=== PATIENT | male | born 1945 | race Caucasian/White ===

== ENCOUNTER → 2016-09-28 | Outpatient (REF) | payer MEDICARE, OTHER ==
[2016-09-28 11:07] LABS: MEAN CORPUSCULAR HGB CONC 33.7 g/dl (32.0-36.5); WHITE BLOOD COUNT 8.4 K/mm3 (4.0-10.0)
[2016-09-28 11:32] LABS: ALBUMIN 4.1 GM/DL (3.2-5.2); ALBUMIN/GLOBULIN RATIO 1.58 (1.00-1.93); ALKALINE PHOSPHATASE 72 U/L (45-117); ALT/SGPT 36 U/L (12-78); ANION GAP 8 MEQ/L (8-16); AST/SGOT 17 U/L (15-37); BILIRUBIN,TOTAL 0.5 MG/DL (0.2-1.0); BLOOD UREA NITROGEN 19 MG/DL (7-18); CALCIUM LEVEL 9.3 MG/DL (8.8-10.2); CARBON DIOXIDE LEVEL 29 MEQ/L (21-32); CHLORIDE LEVEL 102 MEQ/L (98-107); CHOLESTEROL LEVEL 147 MG/DL (<200); GLOMERULAR FILTRATION RATE > 60.0 (>49); GLUCOSE, FASTING 112 MG/DL (80-110); POTASSIUM SERUM 4.5 MEQ/L (3.5-5.1); SODIUM LEVEL 139 MEQ/L (136-145); TOTAL PROTEIN 6.7 GM/DL (6.4-8.2); TRIGLYCERIDES LEVEL 67 MG/DL (<150)
== END ==
LOC: M SFHCCLAY 06:57
PROVIDERS: ATTEND Family Medicine
DX: I10 Essential (primary) hypertension (principal); G47.33 Obstructive sleep apnea (adult) (pediatric); R73.01 Impaired fasting glucose; Z12.5 Encounter for screening for malignant neoplasm of prostate
CPT/HCPCS: 80053; 80061; 83036; 85027; G0103

== ENCOUNTER → 2016-11-07 | Outpatient (REF) | payer MEDICARE, OTHER | LOC: M LABDRAWC 11:27 | PROVIDERS: ATTEND Ophthalmology | DX: H53.9 Unspecified visual disturbance (principal) ==

== ENCOUNTER → 2017-01-08 | Outpatient (REF) | payer MEDICARE, OTHER ==
[~2017-01-08] MED LIST: LOSA100T5 PO; NEXI40CA PO
[2017-01-08 18:08] LABS: BLOOD UREA NITROGEN 26 MG/DL (7-18); GLOMERULAR FILTRATION RATE > 60.0 (>49)
== END ==
LOC: M LABDRAWC 17:04
PROVIDERS: ATTEND Psychiatry & Neurology Neurology
DX: N18.2 Chronic kidney disease, stage 2 (mild) (principal)

== ENCOUNTER → 2017-03-20 | Outpatient (REF) | payer MEDICARE, OTHER ==
[2017-03-20 19:28] LABS: ALBUMIN 4.1 GM/DL (3.2-5.2); ALBUMIN/GLOBULIN RATIO 1.37 (1.00-1.93); ALKALINE PHOSPHATASE 71 U/L (45-117); ALT/SGPT 36 U/L (12-78); ANION GAP 8 MEQ/L (8-16); AST/SGOT 19 U/L (15-37); BILIRUBIN,TOTAL 0.5 MG/DL (0.2-1.0); BLOOD UREA NITROGEN 24 MG/DL (7-18); CALCIUM LEVEL 9.3 MG/DL (8.8-10.2); CARBON DIOXIDE LEVEL 28 MEQ/L (21-32); CHLORIDE LEVEL 105 MEQ/L (98-107); CREATININE FOR GFR 0.87 MG/DL (0.70-1.30); GLOMERULAR FILTRATION RATE > 60.0 (>49); GLUCOSE, FASTING 96 MG/DL (80-110); POTASSIUM SERUM 4.1 MEQ/L (3.5-5.1); SODIUM LEVEL 141 MEQ/L (136-145); TOTAL PROTEIN 7.1 GM/DL (6.4-8.2)
== END ==
LOC: M SFHCCLAY 09:53
PROVIDERS: ATTEND Family Medicine
DX: Z01.818 Encounter for other preprocedural examination (principal); H26.9 Unspecified cataract; I10 Essential (primary) hypertension
CPT/HCPCS: 36415; 80053; G0463

== ENCOUNTER 2017-03-25 07:54 | Day surgery (SDC) | payer MEDICARE, OTHER ==
[~2017-03-25] VITALS: Ht 170.2 cm; Wt 91.6 kg
[~2017-03-25 07:54] MED LIST changes: +ACETAMINOPHEN 325 MG TAB PO PRN; +BSS with VANC/TOB/EPI for EYE CASES IR ONE; +CYCLOPENTOLATE 2% OPHTH SOLN 2ML BTL OS ONE; +LIDOCAINE 3.5 % 1ML OPHTH TOPICAL GEL OU ONE; +OFLOXACIN 0.3 % (OCUFLOX) OPTH SOL 5ML OS ONE; +PHENYLEPHRINE 2.5% OPHTH SOL 2ML OS ONE; +TROPICAMIDE 1% OPHTH SOLN 2ML OS ONE
[2017-03-25] MEDS ORDERED: LR 1,000 ML IV ONE (08:15)
[2017-03-25] MEDS ORDERED: fentaNYL 100 MCG/2 ML INJECTION (J3010) As Ordered ONE (08:55)
[2017-03-25] MEDS ORDERED: MIDAZOLAM INJ 2 MG/2 ML VIAL (J2250) As Ordered ONE (08:55)
[2017-03-25] MEDS ORDERED: POVIDONE-IODINE 5% OPHTH PREP SOL 30ML As Ordered ONE (09:06)
[2017-03-25] MEDS ORDERED: MOXIFLOXACIN IN BSS 0.25MG/0.25ML INTRACAMERAL INJ (OR EYE ONLY)(J2280) As Ordered ONE (09:06)
[2017-03-25] MEDS ORDERED: TRIAMCINOLONE PRES FR 40 MG/ML 1ML(TRIESENCE)(OR EYE ONLY)(J3300 PER 1MG) As Ordered ONE (09:06)
[2017-03-25] MEDS ORDERED: HEALON DUET (HEALON 10MG/ML 0.55ML & HEALON ENDOCOAT 30MG/ML 0.85ML) As Ordered ONE (09:06)
[2017-03-25] MEDS ORDERED: LIDOCAINE 1% SDV 5 ML VIAL As Ordered ONE (09:06)
[2017-03-25] MEDS ORDERED: AcetaZOLAMIDE 500 MG ER CAP PO ONE (09:45)
[2017-03-25] MEDS ORDERED: TRIMETHOBENZAMIDE 300 MG CAP PO PRN (09:45)
[2017-03-25] MEDS ORDERED: ONDANSETRON 4MG/2ML VIAL (J2405) IV PRN (09:45)
[2017-03-25] MEDS ORDERED: LR 1,000 ML IV SCH (09:45)
[2017-03-25 09:50] VITALS: BP 159/88
--- NOTE | 2017-03-25 16:23 | RO ---
DATE OF PROCEDURE: 03/25/2017 PREPROCEDURE DIAGNOSIS: Cataract left eye, miosis left eye. POSTPROCEDURE DIAGNOSIS: Cataract of left eye, miosis left eye. PROCEDURE: Phacoemulsification and intraocular lens implantation and placement of the Malyugin ring 7 mm for miosis. SURGEON: Cristopher Mondragon MD SENIOR SAS DEVELOPER: None. ANESTHESIA: COMPLICATIONS: None. INDICATIONS: Decreased vision interfering with daily activities. DESCRIPTION OF PROCEDURE: The patient was brought to the operating room and laid in supine position, and the eye was prepped and draped in a sterile fashion for ophthalmic surgery and a lid speculum was placed. Side[place] incision was then made and EndoCoat was injected into the anterior chamber. Temporal clear corneal incision was then made with a 2.5 mm keratome followed by capsulorrhexis and hydrodissection. Prior to that, a Malyugin ring was placed to dilate the pupil. After the phacoemulsification was performed within the capsular bag, cortical material was aspirated using irrigation and aspiration cannula. Healon was then placed in the capsular bag and intraocular lens Hoya 19.5 diopters inserted. Excess viscoelastic was then aspirated, wound hydrated, intracameral moxifloxacin was given and sub-Tenon injection of Kenalog was given inferiorly. At the end of the case, lid speculum removed, the patient returned to the recovery room in stable condition.
== END 2017-03-25 09:56 | disposition home or self-care (01) ==
LOC: M SDC 07:54
PROVIDERS: ATTEND Ophthalmology
DX: H26.9 Unspecified cataract (principal); H57.03 Miosis; I10 Essential (primary) hypertension; K21.9 Gastro-esophageal reflux disease without esophagitis; F32.9 Major depressive disorder, single episode, unspecified; G47.33 Obstructive sleep apnea (adult) (pediatric); M72.2 Plantar fascial fibromatosis; R73.01 Impaired fasting glucose; E66.09 Other obesity due to excess calories; R06.83 Snoring; Z79.899 Other long term (current) drug therapy; Z79.82 Long term (current) use of aspirin; Z87.891 Personal history of nicotine dependence
CPT/HCPCS: 66982; J2250; J2280; J3010; J3300; V2632

== ENCOUNTER → 2018-02-10 | Outpatient (REF) | payer MEDICARE, OTHER ==
[2018-02-10 12:43] LABS: BLOOD UREA NITROGEN 24 MG/DL (7-18)
[2018-02-10 12:43] LABS: CREATININE FOR GFR 1.17 MG/DL (0.70-1.30); GLOMERULAR FILTRATION RATE > 60.0 (>42)
== END ==
LOC: M LABDRAWC 11:45
DX: Z13.89 Encounter for screening for other disorder (principal); D43.2 Neoplasm of uncertain behavior of brain, unspecified
CPT/HCPCS: 82565

== ENCOUNTER → 2018-04-02 | Outpatient (REF) | payer MEDICARE, OTHER ==
[2018-04-02 11:51] LABS: HEMATOCRIT 43.8 % (42.0-52.0); HEMOGLOBIN 14.7 g/dl (13.5-17.5); MEAN CORPUSCULAR HEMOGLOBIN 29.5 pg (27.0-33.0); MEAN CORPUSCULAR HGB CONC 33.6 g/dl (32.0-36.5); MEAN CORPUSCULAR VOLUME 87.8 fl (80.0-96.0); PLATELET COUNT, AUTOMATED 227 10^3/uL (150-450); RED BLOOD COUNT 4.99 10^6/uL (4.30-6.10); RED CELL DISTRIBUTION WIDTH 12.2 % (11.5-14.5); WHITE BLOOD COUNT 8.1 10^3/uL (4.0-10.0)
[2018-04-02 11:58] LABS: ALBUMIN/GLOBULIN RATIO 1.38 (1.00-1.93); ALKALINE PHOSPHATASE 74 U/L (45-117); ALT/SGPT 35 U/L (12-78); ANION GAP 8 MEQ/L (8-16); AST/SGOT 17 U/L (7-37); BILIRUBIN,TOTAL 0.5 MG/DL (0.2-1.0); BLOOD UREA NITROGEN 28 MG/DL (7-18); CALCIUM LEVEL 8.7 MG/DL (8.8-10.2); CARBON DIOXIDE LEVEL 28 MEQ/L (21-32); CHLORIDE LEVEL 106 MEQ/L (98-107); CHOLESTEROL LEVEL 154 MG/DL (<200); CHOLESTEROL RISK RATIO 3.347 (<5); CREATININE FOR GFR 1.13 MG/DL (0.70-1.30); GLOMERULAR FILTRATION RATE > 60.0 (>42); GLUCOSE, FASTING 95 MG/DL (70-100); HDL CHOLESTEROL 46 MG/DL (>40); LDL CHOLESTEROL 93 MG/DL (<100); NON-HDL-C 108 MG/DL; POTASSIUM SERUM 4.3 MEQ/L (3.5-5.1); PSA SCREENING 1.65 NG/ML (< 4.0); SODIUM LEVEL 142 MEQ/L (136-145); TOTAL PROTEIN 6.9 GM/DL (6.4-8.2); TRIGLYCERIDES LEVEL 77 MG/DL (<150)
[2018-04-02 13:24] LABS: ESTIMATED AVERAGE GLUCOSE 126 MG/DL (60-110)
== END ==
LOC: M SFHCCLAY 07:36
DX: G47.33 Obstructive sleep apnea (adult) (pediatric) (principal); I10 Essential (primary) hypertension; R73.01 Impaired fasting glucose; Z12.5 Encounter for screening for malignant neoplasm of prostate
CPT/HCPCS: 80053

== ENCOUNTER 2018-05-19 06:01 | Day surgery (SDC) | payer MEDICARE, OTHER ==
[2018-05-19] MEDS: LIDOCAINE 3.5 % 1ML OPHTH TOPICAL GEL OU (06:50)
[2018-05-19] MEDS ORDERED: SODIUM BICARBONATE 8.4% INJ 50MEQ 50 ML VIAL As Ordered (06:56)
[2018-05-19] MEDS ORDERED: MIDAZOLAM INJ 2 MG/2 ML VIAL (J2250) As Ordered (07:19)
[2018-05-19] MEDS ORDERED: LIDOCAINE 2% INJ 100 MG/5 ML SDV (FOR ANES.) As Ordered (07:19)
[2018-05-19] MEDS ORDERED: PROPOFOL 200 MG/20 ML VIAL As Ordered (07:19)
[2018-05-19] MEDS ORDERED: fentaNYL 100 MCG/2 ML INJECTION (J3010) As Ordered (07:19)
[2018-05-19] MEDS: POVIDONE-IODINE 5% OPHTH PREP SOL 30ML As Ordered (07:35)
[2018-05-19] MEDS: LIDOCAINE 2% W/EPIN INJ 20ML **PRES FREE As Ordered (07:41)
[2018-05-19] MEDS: TETRACAINE 0.5% OPHTH SOLN 4ML As Ordered (07:41)
[2018-05-19] MEDS: TOBRADEX OPHTH OINT 3.5 GM As Ordered (07:52)
== END 2018-05-19 08:45 | disposition home or self-care (01) ==
LOC: M SDC 06:01
DX: H02.834 Dermatochalasis of left upper eyelid (principal); H02.831 Dermatochalasis of right upper eyelid; I10 Essential (primary) hypertension; K21.9 Gastro-esophageal reflux disease without esophagitis; R06.83 Snoring; G47.33 Obstructive sleep apnea (adult) (pediatric); Z79.899 Other long term (current) drug therapy; Z79.82 Long term (current) use of aspirin; Z98.41 Cataract extraction status, right eye; Z98.42 Cataract extraction status, left eye; Z96.1 Presence of intraocular lens
CPT/HCPCS: 15823

== ENCOUNTER 2018-10-08 07:51 | Day surgery (SDC) | payer MEDICARE, OTHER ==
[~2018-10-08] VITALS: Ht 172.7 cm; Wt 102.2 kg
[~2018-10-08 07:51] MED LIST changes: -ACETAMINOPHEN 325 MG TAB PO PRN; +ASPI81TA85 PO; -BSS with VANC/TOB/EPI for EYE CASES IR ONE; -CYCLOPENTOLATE 2% OPHTH SOLN 2ML BTL OS ONE; +EDARBYCLOR PO; -LIDOCAINE 3.5 % 1ML OPHTH TOPICAL GEL OU ONE; +NS 1,000 ML IV ONE; -OFLOXACIN 0.3 % (OCUFLOX) OPTH SOL 5ML OS ONE; +PANT40TA3 PO; -PHENYLEPHRINE 2.5% OPHTH SOL 2ML OS ONE; -TROPICAMIDE 1% OPHTH SOLN 2ML OS ONE
--- NOTE | 2018-10-08 09:39 | ROOR ---
Patient Name: Kenny Richard Procedure Date: 10/08/2018 9:19 AM Date of : 1945 Age: 72 Room: [facility] Gender: Male Note Status: Finalized Procedure: Total Colonoscopy to Cecum Indications: High risk colon cancer surveillance: Personal history of colonic polyps, Last colonoscopy: 2014 Providers: Arden Santiago MD Referring MD: Grant Grace MD Requesting Provider: Medicines: Monitored Anesthesia Care Complications: No immediate complications. Procedure: Pre-Anesthesia Assessment: - The heart rate, respiratory rate, oxygen saturations, blood pressure, adequacy of pulmonary ventilation, and response to care were monitored throughout the procedure. The Colonoscope was introduced through the anus and advanced to the cecum, identified by appendiceal orifice and ileocecal valve. The colonoscopy was performed without difficulty. The patient tolerated the procedure well. The quality of the bowel preparation was excellent. Findings: The perianal and digital rectal examinations were normal. Non-bleeding internal hemorrhoids were found during retroflexion. The hemorrhoids were small and Grade I (internal hemorrhoids that do not prolapse). No other significant abnormalities were identified in a careful examination of the remainder of the colon. The exam was otherwise without abnormality on direct and retroflexion views. Impression: - Non-bleeding internal hemorrhoids. - The examination was otherwise normal on direct and retroflexion views. - No specimens collected. - The exam was otherwise normal to the cecum. Recommendation: - Patient has a contact number available for emergencies. The signs and symptoms of potential delayed complications were discussed with the patient. Return to normal activities tomorrow. Written discharge instructions were provided to the patient. - High fiber diet. - Discharge patient to home. - Continue present medications. - Repeat colonoscopy in 5 years for surveillance. - Return to referring physician. - The findings and recommendations were discussed with the patient's family. Arden Santiago MD Arden Santiago MD 10/08/2018 9:39:42 AM Electronically signed by Arden Santiago MD Number of Addenda: 0 Note Initiated On: 10/08/2018 9:19 AM Estimated Blood Loss: Estimated blood loss: none.
[2018-10-08] MEDS ORDERED: PROPOFOL 500 MG/50 ML VIAL As Ordered ONE (09:54)
[2018-10-08] MEDS ORDERED: LIDOCAINE 2% INJ 100 MG/5 ML SDV (FOR ANES.) As Ordered ONE (09:54)
[2018-10-08 10:05] VITALS: BP 151/79
== END 2018-10-08 10:14 | disposition home or self-care (01) ==
LOC: M OPP 07:51
PROVIDERS: ATTEND Internal Medicine Gastroenterology
DX: K64.0 First degree hemorrhoids (principal); Z86.010 Personal history of colon polyps

== ENCOUNTER → 2019-02-18 | Outpatient (REF) | payer MEDICARE, OTHER ==
[~2019-02-18] MED LIST changes: -NS 1,000 ML IV ONE
[2019-02-18 11:26] LABS: CREATININE FOR GFR 1.34 MG/DL (0.70-1.30); GLOMERULAR FILTRATION RATE 55.9 (>42)
== END ==
LOC: M LABDRAWC 11:09
PROVIDERS: ATTEND Neurological Surgery
DX: Z13.89 Encounter for screening for other disorder (principal); D43.2 Neoplasm of uncertain behavior of brain, unspecified

== ENCOUNTER → 2019-10-06 | Outpatient (REF) | payer MEDICARE, OTHER ==
[2019-10-06 12:14] LABS: HEMATOCRIT 45.4 % (42.0-52.0); HEMOGLOBIN 15.2 g/dl (13.5-17.5); MEAN CORPUSCULAR HEMOGLOBIN 30.5 pg (27.0-33.0); MEAN CORPUSCULAR HGB CONC 33.5 g/dl (32.0-36.5); MEAN CORPUSCULAR VOLUME 91.2 fl (80.0-96.0); PLATELET COUNT, AUTOMATED 223 10^3/uL (150-450); RED BLOOD COUNT 4.98 10^6/uL (4.30-6.10); WHITE BLOOD COUNT 9.1 10^3/uL (4.0-10.0)
[2019-10-06 12:36] LABS: ALBUMIN 4.3 GM/DL (3.2-5.2); BILIRUBIN,TOTAL 0.7 MG/DL (0.2-1.0); CALCIUM LEVEL 9.4 MG/DL (8.8-10.2); CHOLESTEROL RISK RATIO 3.434 (<5); CREATININE FOR GFR 1.44 MG/DL (0.70-1.30); GLOMERULAR FILTRATION RATE 51.5 (>42); POTASSIUM SERUM 4.5 MEQ/L (3.5-5.1); THYROID STIMULATING HORMONE 1.19 uIU/ML (0.358-3.740); TOTAL PROTEIN 7.2 GM/DL (6.4-8.2)
== END ==
LOC: M SFHCCLAY 07:46
PROVIDERS: ATTEND Family Medicine
DX: I10 Essential (primary) hypertension (principal); G47.33 Obstructive sleep apnea (adult) (pediatric); R73.01 Impaired fasting glucose; Z12.5 Encounter for screening for malignant neoplasm of prostate
CPT/HCPCS: 80053; 80061; 84443; 85027; G0103

== ENCOUNTER → 2020-02-09 | Outpatient (REF) | payer MEDICARE, OTHER ==
[~2020-02-09] MED LIST changes: -ASPI81TA85 PO; +ASPI81TA86 PO; +PANT40TA29 PO; -PANT40TA3 PO
[2020-02-09 20:32] LABS: BLOOD UREA NITROGEN 25 MG/DL (7-18); CREATININE FOR GFR 1.23 MG/DL (0.70-1.30); GLOMERULAR FILTRATION RATE > 60.0 (>42)
== END ==
LOC: M LABDRAWC 07:10
PROVIDERS: ATTEND Neurological Surgery
DX: Z13.89 Encounter for screening for other disorder (principal)

== ENCOUNTER → 2020-05-24 | Outpatient (CLI) | payer SELFPAY | LOC: M LABSMTC 11:14 | PROVIDERS: ATTEND Pediatrics | DX: Z11.59 Encounter for screening for other viral diseases (principal) ==

== ENCOUNTER → 2020-10-10 | Outpatient (REF) | payer MEDICARE, OTHER ==
[2020-10-10 12:24] LABS: ALBUMIN 4.1 GM/DL (3.2-5.2); ALT/SGPT 36 U/L (12-78); BILIRUBIN,TOTAL 0.5 MG/DL (0.2-1.0); BLOOD UREA NITROGEN 28 MG/DL (7-18); CALCIUM LEVEL 8.9 MG/DL (8.8-10.2); CARBON DIOXIDE LEVEL 29 MEQ/L (21-32); CHLORIDE LEVEL 104 MEQ/L (98-107); CHOLESTEROL LEVEL 158 MG/DL (<200); CHOLESTEROL RISK RATIO 3.224 (<5); CREATININE FOR GFR 1.12 MG/DL (0.70-1.30); GLOMERULAR FILTRATION RATE > 60.0 (>42); GLUCOSE, FASTING 119 MG/DL (70-100); HDL CHOLESTEROL 49 MG/DL (>40); LDL CHOLESTEROL 86 MG/DL (<100); NON-HDL-C 109 MG/DL; POTASSIUM SERUM 4.4 MEQ/L (3.5-5.1); SODIUM LEVEL 139 MEQ/L (136-145); TOTAL PROTEIN 7.1 GM/DL (6.4-8.2); TRIGLYCERIDES LEVEL 113 MG/DL (<150)
[2020-10-10 12:44] LABS: HEMOGLOBIN A1c 5.7 %
== END ==
LOC: M SFHCCLAY 07:05
PROVIDERS: ATTEND Family Medicine
DX: G47.33 Obstructive sleep apnea (adult) (pediatric) (principal); I10 Essential (primary) hypertension; R73.01 Impaired fasting glucose; Z12.5 Encounter for screening for malignant neoplasm of prostate
CPT/HCPCS: 80053; 80061; 83036; 84443; G0103

== ENCOUNTER → 2020-10-20 | Outpatient (CLI) | payer MEDICARE, OTHER ==
--- NOTE | 2020-10-20 15:22 | REP ---
INDICATION: STRAIN. COMPARISON: None TECHNIQUE: Four views FINDINGS: There is no acute fracture, dislocation, subluxation, or joint effusion. IMPRESSION: Mild degenerative changes <Electronically signed by Nbail Del Rio > 10/20/20 [id number]
--- NOTE | 2020-10-20 15:23 | REP ---
INDICATION: STRAIN. COMPARISON: None TECHNIQUE: Four views each wrist FINDINGS: There is no evidence of an acute fracture or destructive osseous lesion. IMPRESSION: Within normal limits bilateral <Electronically signed by Nabil Del Rio > 10/20/20 [id number]
== END ==
LOC: M SOG 11:12
PROVIDERS: ATTEND Orthopaedic Surgery Sports Medicine
DX: S46.211A Strain of muscle, fascia and tendon of other parts of biceps, right arm, initial encounter (principal); G56.03 Carpal tunnel syndrome, bilateral upper limbs; X58.XXXA Exposure to other specified factors, initial encounter; Y92.9 Unspecified place or not applicable; Y99.9 Unspecified external cause status

== ENCOUNTER → 2020-11-03 | Outpatient (CLI) | payer MEDICARE, OTHER ==
--- NOTE | 2020-11-03 17:25 | REP ---
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 COMPARISON: None TECHNIQUE: 3T multiplanar MRI imaging of the right elbow was obtained using various sequences. FINDINGS: There is mild T2 hyper signal seen deep to the common extensor tendon which is intact. The radial collateral ligament is intact. The common flexor tendon is intact. The medial and lateral ulnar collateral ligaments are intact. There is no joint effusion. The examination is limited by motion artifact. All flexor and extensor tendons not affected by motion artifact are intact and of normal appearing low signal throughout. The biceps tendon is poorly evaluated secondary to the motion artifact. There is no evidence of edema around the biceps tubercle of the radius. The chondral surfaces are thinned and slightly irregular particularly affecting the capitellum. IMPRESSION: 1. There is detail limiting motion artifact as described above. 2. There is evidence of edema along the under surface of the common extensor tendon. A slight undersurface tear cannot be ruled out. 3. Chondromalacia as described above. 4. Other findings and limitations as described above. <Electronically signed by Nabil Del Rio > 11/03/20 [id number]
== END ==
LOC: M RAD 15:20
PROVIDERS: ATTEND Physician Assistant
DX: M94.221 Chondromalacia, right elbow (principal); S46.211A Strain of muscle, fascia and tendon of other parts of biceps, right arm, initial encounter; D43.2 Neoplasm of uncertain behavior of brain, unspecified; X58.XXXA Exposure to other specified factors, initial encounter; Y92.9 Unspecified place or not applicable; Y99.9 Unspecified external cause status

== ENCOUNTER → 2021-02-16 | Outpatient (REF) | payer MEDICARE, OTHER ==
[2021-02-16 11:48] LABS: CREATININE FOR GFR 1.24 MG/DL (0.70-1.30); GLOMERULAR FILTRATION RATE > 60.0 (>42)
== END ==
LOC: M LABDRAWC 10:19
PROVIDERS: ATTEND Physician Assistant
DX: D43.2 Neoplasm of uncertain behavior of brain, unspecified (principal)

== ENCOUNTER → 2021-02-21 | Outpatient (CLI) | payer MEDICARE, OTHER ==
[~2021-02-21] MED LIST changes: +PROHANCE 279.3MG/ML 15ML VIAL As Ordered ONE; +PROHANCE 279.3MG/ML 5ML VIAL As Ordered ONE
--- NOTE | 2021-02-21 14:12 | REPVR ---
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 Contrast material: PROHANCE; Contrast volume: 16 ml; Contrast route: INTRAVENOUS (IV); COMPARISON: MRI-Spine,Cervical without con 09/30/2015 6:59 AM FINDINGS: Brain: I see no evidence of acute hemorrhage or acute territorial infarct. For age there are moderate diffuse involutional changes present with mild T2 and FLAIR hyperintensities suggestive of small vessel disease. The expected vascular flow voids are present centrally. Cerebral ventricles: Best seen on the sagittal T1 weighted images is a 6 x 5 mm nodule in the 4th ventricle in the midline which demonstrates limited posterior enhancement. This is slightly hyperintense on the T2 weighted images and would be consistent with a subependymoma. This is not changed significantly in size relative to the MRI of the cervical spine. Bones/joints: The marrow signal is benign on the T1 weighted images. Paranasal sinuses: Limited ethmoid disease without air-fluid levels. Mastoid air cells: The mastoids are well aerated. Orbital cavity: Bilateral lens replacements. Soft tissues: Unremarkable. IMPRESSION: Stable 4th ventricular mass relative to the MRI of more than 5 years ago. 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 No hydronephrosis. Electronically signed by: Tony Lucero On 02/21/2021 14:12:05 PM
== END ==
LOC: M RAD 12:56
PROVIDERS: ATTEND Physician Assistant
DX: D43.2 Neoplasm of uncertain behavior of brain, unspecified (principal)
CPT/HCPCS: 70553; A9576

== ENCOUNTER → 2021-04-13 | Outpatient (REF) | payer MEDICARE, OTHER ==
[~2021-04-13] MED LIST changes: -PROHANCE 279.3MG/ML 15ML VIAL As Ordered ONE; -PROHANCE 279.3MG/ML 5ML VIAL As Ordered ONE
[2021-04-13 16:38] LABS: APPEARANCE, URINE CLEAR (CLEAR); BACTERIA, URINE AUTO NEGATIVE (NEGATIVE); BILIRUBIN, URINE AUTO NEGATIVE (NEGATIVE); BLOOD, URINE BLOOD NEGATIVE (NEGATIVE); COLOR, URINE STRAW (YELLOW); GLUCOSE, URINE (UA) AUTO NEGATIVE (NEGATIVE); KETONE, URINE AUTO NEGATIVE (NEGATIVE); LEUKOCYTE ESTERASE, URINE AUTO NEGATIVE (NEGATIVE); NITRITE, URINE AUTO NEGATIVE (NEGATIVE); PROTEIN, URINE AUTO NEGATIVE (NEGATIVE); RBC, URINE AUTO 0 /HPF (0-3); SPECIFIC GRAVITY URINE AUTO 1.003 (1.002-1.035); SQUAMOUS EPITHELIAL CELL UR AU 0 /HPF (0-6); UROBILINOGEN, URINE AUTO 0.2 mg/dL (0.0-2.0); WBC, URINE AUTO 0 /HPF (0-3)
== END ==
LOC: M SFHCCLAY 11:00
PROVIDERS: ATTEND Family Medicine
DX: R39.15 Urgency of urination (principal)
CPT/HCPCS: 81001; G0463

== ENCOUNTER → 2021-10-11 | Outpatient (REF) | payer MEDICARE, OTHER ==
[2021-10-11 12:12] LABS: HEMATOCRIT 42.9 % (42.0-52.0); HEMOGLOBIN 14.1 g/dl (13.5-17.5); MEAN CORPUSCULAR HEMOGLOBIN 29.7 pg (27.0-33.0); MEAN CORPUSCULAR HGB CONC 32.9 g/dl (32.0-36.5); MEAN CORPUSCULAR VOLUME 90.5 fl (80.0-96.0); PLATELET COUNT, AUTOMATED 197 10^3/uL (150-450); RED BLOOD COUNT 4.74 10^6/uL (4.30-6.10); WHITE BLOOD COUNT 8.6 10^3/uL (4.0-10.0)
[2021-10-11 12:31] LABS: HEMOGLOBIN A1c 5.9 %
[2021-10-11 12:48] LABS: ALBUMIN 4.1 GM/DL (3.2-5.2); ALT/SGPT 36 U/L (12-78); BILIRUBIN,TOTAL 0.5 MG/DL (0.2-1.0); BLOOD UREA NITROGEN 27 MG/DL (7-18); CALCIUM LEVEL 9.3 MG/DL (8.8-10.2); CARBON DIOXIDE LEVEL 30 MEQ/L (21-32); CHLORIDE LEVEL 106 MEQ/L (98-107); CHOLESTEROL LEVEL 172 MG/DL (<200); CHOLESTEROL RISK RATIO 3.739 (<5); CREATININE FOR GFR 1.21 MG/DL (0.70-1.30); GLOMERULAR FILTRATION RATE > 60.0 (>42); GLUCOSE, FASTING 106 MG/DL (70-100); HDL CHOLESTEROL 46 MG/DL (>40); LDL CHOLESTEROL 100 MG/DL (<100); NON-HDL-C 126 MG/DL; POTASSIUM SERUM 5.2 MEQ/L (3.5-5.1); SODIUM LEVEL 140 MEQ/L (136-145); TOTAL PROTEIN 6.8 GM/DL (6.4-8.2); TRIGLYCERIDES LEVEL 130 MG/DL (<150)
== END ==
LOC: M SFHCCLAY 07:04
PROVIDERS: ATTEND Family Medicine
DX: I10 Essential (primary) hypertension (principal); G47.33 Obstructive sleep apnea (adult) (pediatric); Z12.5 Encounter for screening for malignant neoplasm of prostate; R73.01 Impaired fasting glucose

== ENCOUNTER → 2021-10-12 | Outpatient (REF) | payer MEDICARE, OTHER ==
[2021-10-12 16:11] LABS: APPEARANCE, URINE CLEAR (CLEAR); BACTERIA, URINE AUTO NEGATIVE (NEGATIVE); BILIRUBIN, URINE AUTO NEGATIVE (NEGATIVE); BLOOD, URINE BLOOD NEGATIVE (NEGATIVE); COLOR, URINE YELLOW (YELLOW); GLUCOSE, URINE (UA) AUTO NEGATIVE (NEGATIVE); KETONE, URINE AUTO TRACE mg/dL (NEGATIVE); LEUKOCYTE ESTERASE, URINE AUTO NEGATIVE (NEGATIVE); MUCUS, URINE SMALL (NEGATIVE); NITRITE, URINE AUTO NEGATIVE (NEGATIVE); PROTEIN, URINE AUTO NEGATIVE (NEGATIVE); RBC, URINE AUTO 0 /HPF (0-3); SQUAMOUS EPITHELIAL CELL UR AU 0 /HPF (0-6); UROBILINOGEN, URINE AUTO 0.2 mg/dL (0.0-2.0); WBC, URINE AUTO 0 /HPF (0-3)
== END ==
LOC: M SFHCCLAY 15:43
PROVIDERS: ATTEND Family Medicine
DX: I10 Essential (primary) hypertension (principal); G47.33 Obstructive sleep apnea (adult) (pediatric); R73.01 Impaired fasting glucose

== ENCOUNTER → 2022-04-16 | Outpatient (REF) | payer MEDICARE, OTHER ==
[2022-04-16 12:56] LABS: CALCIUM LEVEL 9.3 MG/DL (8.8-10.2); CREATININE FOR GFR 1.26 MG/DL (0.70-1.30); GLOMERULAR FILTRATION RATE 59.6 (>42); POTASSIUM SERUM 4.4 MEQ/L (3.5-5.1)
== END ==
LOC: M SFHCCLAY 08:17
PROVIDERS: ATTEND Family Medicine
DX: R73.01 Impaired fasting glucose (principal); I10 Essential (primary) hypertension

== ENCOUNTER → 2022-10-10 | Outpatient (REF) | payer MEDICARE, OTHER ==
[2022-10-10 12:39] LABS: ALBUMIN 4.1 G/DL (3.2-5.2); BILIRUBIN,TOTAL 0.5 MG/DL (0.3-1.2); CALCIUM LEVEL 9.1 MG/DL (8.3-10.6); CHOLESTEROL RISK RATIO 3.16 (<5); CREATININE FOR GFR 1.27 MG/DL (0.70-1.30); HDL CHOLESTEROL 48.3 MG/DL (>40); LDL CHOLESTEROL 83.5 MG/DL (<100); NON-HDL-C 104.7 MG/DL; POTASSIUM SERUM 4.3 MMOL/L (3.5-5.1); TOTAL PROTEIN 6.6 G/DL (5.7-8.2)
== END ==
LOC: M SFHCCLAY 07:53
PROVIDERS: ATTEND Family Medicine
DX: I10 Essential (primary) hypertension (principal); G47.33 Obstructive sleep apnea (adult) (pediatric); Z12.5 Encounter for screening for malignant neoplasm of prostate; R73.01 Impaired fasting glucose
CPT/HCPCS: 80053; 80061; 83036; G0103

== ENCOUNTER → 2023-01-31 | Outpatient (REF) | payer MEDICARE, OTHER ==
[2023-01-31 11:53] LABS: BLOOD UREA NITROGEN 25 MG/DL (9-23); CREATININE FOR GFR 1.23 MG/DL (0.70-1.30); GLOMERULAR FILTRATION RATE > 60.0 (>42)
== END ==
LOC: M LABDRAWC 11:03
PROVIDERS: ATTEND Physician Assistant
DX: D43.2 Neoplasm of uncertain behavior of brain, unspecified (principal)

== ENCOUNTER → 2023-04-08 | Outpatient (REF) | payer MEDICARE, OTHER ==
[2023-04-08 19:01] LABS: HEMATOCRIT 42.5 % (42.0-52.0); HEMOGLOBIN 14.3 g/dl (13.5-17.5); MEAN CORPUSCULAR HEMOGLOBIN 30.4 pg (27.0-33.0); MEAN CORPUSCULAR HGB CONC 33.6 g/dl (32.0-36.5); MEAN CORPUSCULAR VOLUME 90.2 fl (80.0-96.0); PLATELET COUNT, AUTOMATED 223 10^3/uL (150-450); RED BLOOD COUNT 4.71 10^6/uL (4.30-6.10); WHITE BLOOD COUNT 9.9 10^3/uL (4.0-10.0)
[2023-04-09 02:40] LABS: HEMOGLOBIN A1c 5.7 % (4.0-6.0)
[2023-04-09 03:15] LABS: ALBUMIN 4.2 G/DL (3.2-5.2); ALKALINE PHOSPHATASE 65 U/L (46-116); ALT/SGPT 23 U/L (7.0-40); AST/SGOT 16 U/L (<34); BILIRUBIN,TOTAL 0.4 MG/DL (0.3-1.2); BLOOD UREA NITROGEN 27 MG/DL (9-23); CALCIUM LEVEL 9.5 MG/DL (8.3-10.6); CARBON DIOXIDE LEVEL 28 MMOL/L (20-31); CHLORIDE LEVEL 102 MMOL/L (98-107); CREATININE FOR GFR 1.22 MG/DL (0.70-1.30); GLOMERULAR FILTRATION RATE > 60.0 (>42); GLUCOSE, FASTING 93 MG/DL (74-106); POTASSIUM SERUM 4.3 MMOL/L (3.5-5.1); SODIUM LEVEL 139 MMOL/L (136-145)
== END ==
LOC: M SFHCCLAY 13:58
PROVIDERS: ATTEND Family Medicine
DX: I10 Essential (primary) hypertension (principal); G47.33 Obstructive sleep apnea (adult) (pediatric); Z12.5 Encounter for screening for malignant neoplasm of prostate; R73.01 Impaired fasting glucose

== ENCOUNTER → 2023-11-05 | Outpatient (REF) | payer MEDICARE, OTHER | LOC: M SFHCCLAY 07:46 | PROVIDERS: ATTEND Family Medicine | DX: I10 Essential (primary) hypertension (principal); G47.33 Obstructive sleep apnea (adult) (pediatric); Z12.5 Encounter for screening for malignant neoplasm of prostate; R73.01 Impaired fasting glucose ==

== ENCOUNTER → 2023-12-09 | Outpatient (REF) | payer MEDICARE, OTHER ==
[~2023-12-09] MED LIST changes: +ECOT81TA5 PO; +TAMS1CAP17 PO
[2023-12-09 13:44] LABS: BLOOD UREA NITROGEN 30 MG/DL (9-23); CALCIUM LEVEL 9.2 MG/DL (8.3-10.6); CARBON DIOXIDE LEVEL 30 MMOL/L (20-31); CHLORIDE LEVEL 103 MMOL/L (98-107); CREATININE FOR GFR 1.23 MG/DL (0.70-1.30); GLOMERULAR FILTRATION RATE > 60.0 (>42); GLUCOSE, FASTING 118 MG/DL (74-106); POTASSIUM SERUM 4.6 MMOL/L (3.5-5.1); SODIUM LEVEL 138 MMOL/L (136-145)
== END ==
LOC: M SFHCCLAY 07:51
PROVIDERS: ATTEND Family Medicine
DX: I10 Essential (primary) hypertension (principal)

== ENCOUNTER 2023-12-23 07:29 | Day surgery (SDC) | payer MEDICARE, OTHER ==
[~2023-12-23] VITALS: Ht 172.7 cm; Wt 98.9 kg
[2023-12-23] MEDS: NS 1,000 ML IV ONE (08:01)
[2023-12-23] MEDS ORDERED: LIDOCAINE 2% 100MG/5ML SDV (FOR ANES.) As Ordered ONE (08:47)
[2023-12-23] MEDS ORDERED: propofoL 200 MG/20 ML VIAL As Ordered ONE (08:47)
[2023-12-23 09:05] VITALS: TEMP 98.1
[2023-12-23 09:34] VITALS: BP 136/78; O2SAT 97
== END 2023-12-23 09:35 | disposition home or self-care (01) ==
LOC: M OPP 07:29
PROVIDERS: ATTEND Internal Medicine Gastroenterology
DX: Z12.11 Encounter for screening for malignant neoplasm of colon (principal); Z86.010 Personal history of colon polyps; D12.2 Benign neoplasm of ascending colon; K64.0 First degree hemorrhoids; K57.30 Diverticulosis of large intestine without perforation or abscess without bleeding; K21.00 Gastro-esophageal reflux disease with esophagitis, without bleeding; R12 Heartburn; G47.30 Sleep apnea, unspecified; Z99.89 Dependence on other enabling machines and devices; I10 Essential (primary) hypertension; Z79.1 Long term (current) use of non-steroidal anti-inflammatories (NSAID); Z79.899 Other long term (current) drug therapy

== ENCOUNTER → 2024-03-09 | Outpatient (REF) | payer MEDICARE, OTHER ==
[2024-03-09 18:47] LABS: BASO # 0.1 10^3/uL (0.0-0.2); BASO % 0.8 % (0.0-1.0); EOS # 0.7 10^3/uL (0.0-0.5); EOS % 6.2 % (0.0-3.0); HEMATOCRIT 44.4 % (42.0-52.0); HEMOGLOBIN 14.9 g/dl (13.5-17.5); LYMPH # 2.3 10^3/uL (1.5-5.0); LYMPH % 21.4 % (24.0-44.0); MEAN CORPUSCULAR HEMOGLOBIN 30.7 pg (27.0-33.0); MEAN CORPUSCULAR HGB CONC 33.6 g/dl (32.0-36.5); MEAN CORPUSCULAR VOLUME 91.5 fl (80.0-96.0); MONO # 0.9 10^3/uL (0.0-0.8); MONO % 8.4 % (2.0-8.0); NEUTROPHILS # 6.6 10^3/uL (1.5-8.5); NEUTROPHILS % 62.5 % (36.0-66.0); PLATELET COUNT, AUTOMATED 229 10^3/uL (150-450); RED BLOOD COUNT 4.85 10^6/uL (4.30-6.10); WHITE BLOOD COUNT 10.6 10^3/uL (4.0-10.0)
[2024-03-09 19:05] LABS: ALBUMIN 4.2 G/DL (3.2-5.2); ALKALINE PHOSPHATASE 93 U/L (46-116); ALT/SGPT 28 U/L (7.0-40); AST/SGOT 13 U/L (<34); BILIRUBIN,TOTAL 0.4 MG/DL (0.3-1.2); BLOOD UREA NITROGEN 24 MG/DL (9-23); CALCIUM LEVEL 9.5 MG/DL (8.3-10.6); CARBON DIOXIDE LEVEL 29 MMOL/L (20-31); CHLORIDE LEVEL 106 MMOL/L (98-107); CREATININE FOR GFR 1.24 MG/DL (0.70-1.30); GLOMERULAR FILTRATION RATE > 60.0 (>42); GLUCOSE, FASTING 143 MG/DL (74-106); POTASSIUM SERUM 4.2 MMOL/L (3.5-5.1); SODIUM LEVEL 143 MMOL/L (136-145); THYROID STIMULATING HORMONE 1.274 uIU/ML (0.55-4.78); TOTAL PROTEIN 6.9 G/DL (5.7-8.2)
== END ==
LOC: M SFHCCLAY 13:28
PROVIDERS: ATTEND Physician Assistant
DX: L29.9 Pruritus, unspecified (principal)

== ENCOUNTER → 2024-05-07 | Outpatient (REF) | payer MEDICARE, OTHER ==
[2024-05-07 12:40] LABS: HEMOGLOBIN A1c 5.8 % (4.0-6.0)
== END ==
LOC: M SFHCCLAY 07:39
PROVIDERS: ATTEND Family Medicine
DX: R73.01 Impaired fasting glucose (principal); Z20.9 Contact with and (suspected) exposure to unspecified communicable disease; S50.862A Insect bite (nonvenomous) of left forearm, initial encounter; W57.XXXA Bitten or stung by nonvenomous insect and other nonvenomous arthropods, initial encounter; Y92.9 Unspecified place or not applicable; Y99.9 Unspecified external cause status; Y93.9 Activity, unspecified

== ENCOUNTER → 2024-05-13 | Outpatient (REF) | payer MEDICARE, OTHER ==
[2024-05-13 17:54] LABS: RHEUMATOID FACTOR QUANT 5.1 IU/ML (<14)
[2024-05-18 13:46] LABS: ANA SCREEN, IFA NEGATIVE (NEGATIVE)
[2024-05-18 22:16] LABS: PTH INTACT 32.6 PG/ML (18.5-88.0)
[2024-05-19 23:02] LABS: TRYPTASE 4.5 mcg/L (<11.0)
== END ==
LOC: M LABDRAWC 10:04
PROVIDERS: ATTEND Allergy & Immunology Allergy
DX: L29.9 Pruritus, unspecified (principal)

== ENCOUNTER → 2024-11-05 | Outpatient (REF) | payer MEDICARE, OTHER ==
[2024-11-05 12:53] LABS: PSA SCREENING 1.65 NG/ML (< 4.00)
[2024-11-05 12:57] LABS: ALBUMIN 4.2 G/DL (3.2-5.2); BILIRUBIN,TOTAL 0.4 MG/DL (0.3-1.2); CALCIUM LEVEL 9.4 MG/DL (8.3-10.6); CHOLESTEROL RISK RATIO 4.63 (<5); CREATININE FOR GFR 1.4 MG/DL (0.70-1.30); GLOMERULAR FILTRATION RATE 52.1 (>42); HDL CHOLESTEROL 38.4 MG/DL (>40); LDL CHOLESTEROL 110.2 MG/DL (<100); NON-HDL-C 139.6 MG/DL; POTASSIUM SERUM 4.3 MMOL/L (3.5-5.1)
[2024-11-05 13:03] LABS: HEMOGLOBIN A1c 5.8 % (4.0-6.0)
== END ==
LOC: M SFHCCLAY 08:49
PROVIDERS: ATTEND Nurse Practitioner Family
DX: Z12.5 Encounter for screening for malignant neoplasm of prostate (principal); Z00.00 Encounter for general adult medical examination without abnormal findings; I10 Essential (primary) hypertension; K21.9 Gastro-esophageal reflux disease without esophagitis; G47.33 Obstructive sleep apnea (adult) (pediatric); N40.0 Benign prostatic hyperplasia without lower urinary tract symptoms
CPT/HCPCS: 80053; 80061; 83036; G0103

== ENCOUNTER → 2025-05-25 | Outpatient (CLI) | payer MEDICARE, OTHER ==
[~2025-05-25] MED LIST changes: +PROHANCE 279.3MG/ML 15ML VIAL As Ordered ONE; +PROHANCE 279.3MG/ML 5ML VIAL As Ordered ONE
== END ==
LOC: M RAD 10:35
PROVIDERS: ATTEND Neurological Surgery
DX: D43.2 Neoplasm of uncertain behavior of brain, unspecified (principal); G31.9 Degenerative disease of nervous system, unspecified; J34.89 Other specified disorders of nose and nasal sinuses
CPT/HCPCS: 70553; A9579